=== PATIENT | male | born 1955 | race Caucasian/White ===

== ENCOUNTER → 2018-10-06 08:32 | Outpatient (CLI) | payer MEDICARE, SELFPAY ==
[2018-10-06 10:05] LABS: Add Manual Diff / Slide Review NO; Basophils Absolute Auto 0 /uL (0-100); Basophils Percent Auto 0.6 % (0-2); Eosinophils Absolute Auto 200 /uL (0-450); Eosinophils Percent Auto 3.8 % (2-4); Hematocrit 46.8 % (41-53); Lymphocytes Absolute Auto 2700 /uL (1100-4500); Lymphocytes Percent Auto 52.1 % (25-40); Mean Corpuscular HGB Conc 34.1 % (30-36); Mean Corpuscular Hemoglobin 30.1 PG (26-34); Mean Corpuscular Volume 88.3 fL (80-100); Monocytes Absolute Auto 600 /uL (0-900); Monocytes Percent Auto 11.6 % (3-14); Neutrophils Absolute Auto 1600 /uL (1500-7000); Neutrophils Percent Auto 31.9 % (50-75); Platelet Count 264 X10^3/uL (150-400); Red Blood Cell Count 5.31 X10^6/uL (4.5-5.9); Red Cell Distribution Width 13.7 % (11.6-14.8); White Blood Cell Count 5.2 X10^3/uL (4.5-11.0)
[2018-10-06 10:17] LABS: Alanine Aminotransferase 41 IU/L (21-72); Albumin 4.4 g/dL (3.5-5.0); Albumin Globulin Ratio 1.5 (1.0-2.8); Alkaline Phosphatase 73 U/L (38-126); Aspartate Aminotransferase 38 IU/L (17-59); BUN Creatinine Ratio 28.3 (6-22); Bilirubin Total 0.7 mg/dL (0.2-1.3); Blood Urea Nitrogen 17 mg/dL (9-20); Calcium 9.6 mg/dL (8.4-10.2); Carbon Dioxide 29 mmol/L (22-32); Chloride 104 mmol/L (98-107); Cholesterol 217 mg/dL (140-199); Estimated Glomerular Filt Rate > 60.0 mL/min (>60); Glucose 117 mg/dL (80-110); HDL Cholesterol 66 mg/dL (40-60); HEMOLYSIS < 15 (0-50); LDL Cholesterol Calculated 136 mg/dL (<100); Potassium 4.1 mmol/L (3.4-5.1); Sodium 140 mmol/L (137-145); Total Protein 7.4 g/dL (6.3-8.2); Triglycerides 74 mg/dL (35-150)
[2018-10-06 10:52] LABS: Prostate Specific Antigen Scrn 0.468 ng/mL (0.1-4.0)
== END ==
PROVIDERS: PCP Family Medicine; Visit Provider Family Medicine
DX: E78.5 Hyperlipidemia, unspecified (principal); Z12.5 Encounter for screening for malignant neoplasm of prostate
CPT/HCPCS: 36415; 80053; 80061; 84443; 85025; G0103

== ENCOUNTER → 2019-02-04 09:38 | Outpatient (CLI) | payer MEDICARE, SELFPAY ==
--- NOTE | 2019-02-04 09:42 | DI.RAD.S_ITS ---
PROCEDURE: XR HIP W PEL IF DONE RT 2V INDICATIONS: fall TECHNIQUE: 2 views of the hip were acquired. COMPARISON: None. FINDINGS: Bones: No fractures or dislocations. No suspicious bony lesions. The visualized pelvic ring appears intact. Scattered degenerative subchondral sclerosis and spurring. Mild to joint space narrowing Soft tissues: No suspicious soft tissue calcifications or masses. IMPRESSION: No fracture. If the patient's pain or other symptoms persist, consider further evaluation with MRI Mild right hip joint degeneration Dictated by: Umberto Joseph M.D. on 02/04/2019 at 12:54 Approved by: Umberto Joseph M.D. on 02/04/2019 at 12:55
== END ==
PROVIDERS: PCP Family Medicine; Visit Provider Family Medicine
DX: M25.551 Pain in right hip (principal); M16.11 Unilateral primary osteoarthritis, right hip
CPT/HCPCS: 73502

== ENCOUNTER 2019-05-02 10:15 | Emergency (ER) | payer MEDICARE, SELFPAY ==
--- NOTE | 2019-05-02 10:18 | DI.RAD.S_ITS ---
PROCEDURE: XR CHEST 1V INDICATIONS: chest pain TECHNIQUE: One view of the chest was acquired. COMPARISON: None. FINDINGS: Surgical changes and devices: None. Lungs and pleura: Lungs are clear. No pleural effusions or pneumothorax. Mediastinum: Mediastinal contours appear normal. Heart size is normal. There appears to be mild aortic atherosclerosis. Bones and chest wall: No suspicious bony lesions. Mild deformity of the left clavicle may be related to previous injury. There may also be chronic the 1st and 2nd rib fractures. Overlying soft tissues appear unremarkable. IMPRESSION: No acute cardiopulmonary process is evident. Dictated by: Curtis Landeros M.D. on 05/02/2019 at 9:50 Approved by: Curtis Landeros M.D. on 05/02/2019 at 9:51
[2019-05-02 10:22] VITALS: BP 180/114; PULSE 82; RESP 16; TEMP 36.6; O2SAT 100; BMI 30.2
[2019-05-02 10:32] LABS: Add Manual Diff / Slide Review NO; Basophils Absolute Auto 0 /uL (0-100); Basophils Percent Auto 0.8 % (0-2); Eosinophils Absolute Auto 100 /uL (0-450); Eosinophils Percent Auto 2.7 % (2-4); Hematocrit 46.2 % (41-53); Lymphocytes Absolute Auto 2200 /uL (1100-4500); Mean Corpuscular HGB Conc 34.7 % (30-36); Mean Corpuscular Hemoglobin 30.8 PG (26-34); Mean Corpuscular Volume 88.7 fL (80-100); Monocytes Absolute Auto 700 /uL (0-900); Monocytes Percent Auto 12.4 % (3-14); Neutrophils Absolute Auto 2300 /uL (1500-7000); Neutrophils Percent Auto 43.1 % (50-75); Platelet Count 269 X10^3/uL (150-400); Red Blood Cell Count 5.21 X10^6/uL (4.5-5.9); Red Cell Distribution Width 13.6 % (11.6-14.8); White Blood Cell Count 5.4 X10^3/uL (4.5-11.0)
[2019-05-02 10:33] VITALS: BP 150/104; PULSE 73; RESP 18; O2SAT 98
[2019-05-02] MEDS: ASPIRIN 81 MG CHEW TAB 324 MG PO (10:38)
[2019-05-02] MEDS: SODIUM CHLORIDE 0.9% 1,000 ML 150 ML IV (10:38)
[2019-05-02 10:42] LABS: D Dimer < 200 ng/mL (<230)
[2019-05-02 10:47] LABS: Alanine Aminotransferase 25 IU/L (<50); Albumin 4.6 g/dL (3.5-5.0); Albumin Globulin Ratio 1.6 (1.0-2.8); Alkaline Phosphatase 75 U/L (38-126); Aspartate Aminotransferase 27 IU/L (17-59); BUN Creatinine Ratio 28.3 (6-22); Bilirubin Total 0.5 mg/dL (0.2-1.3); Blood Urea Nitrogen 17 mg/dL (9-20); Calcium 9.7 mg/dL (8.4-10.2); Carbon Dioxide 31 mmol/L (22-32); Chloride 100 mmol/L (98-107); Creatine Kinase 123 U/L (55-170); Estimated Glomerular Filt Rate > 60.0 mL/min (>60); Globulin 2.8 g/dL (1.7-4.1); Glucose 111 mg/dL (80-110); HEMOLYSIS < 15 (0-50); Lipase 38 U/L (23-300); Potassium 4.3 mmol/L (3.4-5.1); Sodium 139 mmol/L (137-145); Total Protein 7.4 g/dL (6.3-8.2)
--- NOTE | 2019-05-02 10:48 | ED.CHESTPAIN ---
HPI - Chest Pain General Chief Complaint: Chest Pain Stated Complaint: CHEST PAIN - SENT FROM [facility] Time Seen by Provider: 05/02/19 10:18 Source: patient Mode of arrival: Ambulatory Limitations: no limitations History of Present Illness HPI narrative: 63-year-old male nonsmoker with noncontributory medical history presents with vague left-sided neck and back pain which seems to wrap around the left chest wall for upwards of 6 weeks. He denies any injury or obvious overuse. He denies any dizziness, weakness or lightheadedness. He denies any fever chills nor cough or shortness of breath. He denies cardiac equivalent such as dizziness, diaphoresis, nausea, vomiting. He has had no long distance travel, history of clot or any kind of cancer. He denies any swelling or pain in his lower extremities. He was seen and evaluated in the walk-in clinic and sent here for evaluation Related Data Home Medications Medication Instructions Recorded Confirmed ASPIRIN (Aspirin EC) 81 mg PO Q DAY #0 11/24/10 05/02/19 naproxen sodium [Aleve] 220 mg PO PRN #0 02/13/11 05/02/19 [VITAMIN E ] 400 iu PO QDAY #0 02/15/11 05/02/19 Previous Rx's Medication Instructions Recorded clobetasol [Temovate] 0.05 % TOPICAL BID #60 gm 06/10/18 amlodipine 5 mg PO DAILY #14 tab 05/02/19 Allergies Allergy/AdvReac Type Severity Reaction Status Date / Time No Known Drug Allergies Allergy Verified 05/02/19 09:23 Review of Systems Constitutional Constitutional: Denies chills, Denies fatigue, Denies fever(s), Denies frequent falls, Denies lethargy and Denies weakness Eyes Eyes: Denies change in vision, Denies eye discharge, Denies irritation and Denies loss of vision ENT Ears, Nose, Mouth, and Throat: Denies change in voice, Denies dizziness, Denies neck pain, Denies sore throat and Denies throat swelling Cardiovascular Cardiovascular: Reports chest pain, Denies irregular heart rhythm, Denies lightheadedness, Denies palpitations, Denies dyspnea, Denies dyspnea on exertion and Denies orthopnea Respiratory Respiratory: Denies cough, Denies dyspnea, Denies dyspnea on exertion and Denies wheezing Gastrointestinal Gastrointestinal: Denies abdominal pain, Denies change in bowel habits, Denies diarrhea, Denies nausea and Denies vomiting Genitourinary Genitourinary: Denies hematuria, Denies flank pain, Denies urinary incontinence and Denies urinary urgency Musculoskeletal Musculoskeletal: Denies back pain, Denies muscle weakness, Denies neck pain, Denies numbness and Denies tingling Integumentary/Breasts Skin/Breast: Denies pruritus, Denies erythema, Denies rash and Denies wounds Neurologic Neurologic: Denies behavioral changes, Denies confusion, Denies dizziness, Denies frequent falls, Denies loss of vision, Denies numbness, Denies tingling and Denies weakness Psychiatric Psychiatric: Denies anxiety, Denies behavioral changes, Denies confusion, Denies depression, Denies homicidal ideation and Denies suicidal ideation Endocrine Endocrine: Denies fatigue, Denies flushing and Denies palpitations Hematologic/Lymphatic Hematologic/Lymphatic: Denies easy bruising Allergic/Immunologic Allergic/Immunologic: Denies urticaria, Denies throat swelling and Denies wheezing Patient History Medical History Bilateral trigger thumb (Resolved) Hyperlipidemia (Chronic) Peyronie's disease (Chronic 2010) Surgical History History of carpal tunnel repair (Resolved 2005) History of cataract removal with insertion of prosthetic lens (Resolved 04/2013) History of foot surgery (Resolved 07/14/12) History of splenectomy (Resolved 1962) History of thumb surgery (Resolved 10/23/07) Status post functional endoscopic sinus surgery (FESS) (Resolved) Status post medial meniscectomy of left knee (Resolved 02/15/11) Status post medial meniscectomy of right knee (Resolved) Family History Father Heart disease Mother Breast cancer in situ Bladder cancer Other Cancer Diabetes mellitus Low back pain Rheumatoid arthritis Stroke Social History Smoking Status: Never smoker Smoking Status: Never smoker alcohol intake frequency: 3 or more drinks per day Alcohol type: beer Substance Use Type: does not use Exam Narrative Exam Narrative: GENERAL: [63] year old patient appears stated age. Well-nourished, well-developed patient, in mild distress. HEAD: Atraumatic. Normocephalic. EYES: Pupils equal round and reactive. Extraocular motions intact. No scleral icterus. No injection or drainage. ENT: Nose without bleeding, purulent drainage. Throat without erythema, tonsillar hypertrophy or exudate. Airway patent. NECK: Trachea midline. Non tender CARDIOVASCULAR: Regular rate and rhythm without murmurs, gallops, or rubs. RESPIRATORY: Clear to auscultation. Breath sounds equal bilaterally. No wheezes, rales, or rhonchi. GASTROINTESTINAL: Abdomen soft, non-tender, nondistended. EXTREMITIES: No edema or joint tenderness. BACK: Nontender without deformity or crepitance. No flank tenderness. NEURO: AOx3. SKIN: No rash or erythema of visible areas Initial Vital Signs Initial Vital Signs: Vital Signs Temperature 97.8 F 05/02/19 10:22 Pulse Rate 82 05/02/19 10:22 Respiratory Rate 16 05/02/19 10:22 Blood Pressure 180/114 H 05/02/19 10:22 Pulse Oximetry 100 05/02/19 10:22 Course Orders Ordered: ED Orders 05/02/19 10:18 XR chest 1V Stat 05/02/19 10:24 EKG-12 Lead Stat 05/02/19 10:29 B Type Natriuretic Peptide Stat Complete Blood Count AUTO DIFF Stat Comprehensive Metabolic Panel Stat D Dimer Stat Lipase Stat Troponin & CK Cardiac Panel Stat Discontinued Medications Aspirin (Aspirin Chew) 324 mg PO NOW ONE Stop: 05/02/19 10:19 Last Admin: 05/02/19 10:38 Dose: 324 mg Documented by: HERRERA Sodium Chloride (Normal Saline 0.9%) 1,000 mls @ 150 mls/hr IV CONT CRISTAL Last Infusion: 05/02/19 12:54 Dose: 0 mls/hr Documented by: Admin: 05/02/19 10:38 Dose: 150 mls/hr Documented by: HERRERA Vital Signs Vital signs: Vital Signs - 8 hr 05/02/19 11:30 05/02/19 12:45 05/02/19 12:53 Pulse Rate 66 67 71 Respiratory Rate 16 15 16 Blood Pressure 174/94 H Blood Pressure [Left Arm] 160/99 H 176/94 H Pulse Oximetry 98 99 98 MDM - Chest Pain Lab Data Result diagrams: 05/02/19 10:29 05/02/19 10:29 Labs: Lab Results 05/02/19 05/02/19 05/02/19 Range/Units 10:29 10:29 10:29 WBC 5.4 (4.5-11.0) X10^3/uL RBC 5.21 (4.5-5.9) X10^6/uL Hgb 16.0 (13.5-17.5) g/dL Hct 46.2 (41-53) % MCV 88.7 (80-100) fL MCH 30.8 (26-34) PG MCHC 34.7 (30-36) % RDW 13.6 (11.6-14.8) % Plt Count 269 (150-400) X10^3/uL Neut % (Auto) 43.1 L (50-75) % Lymph % (Auto) 41.0 H (25-40) % [place] % (Auto) 12.4 (3-14) % Eos % (Auto) 2.7 (2-4) % Baso % (Auto) 0.8 (0-2) % Neut # (Auto) 2300 (2912-7730) /uL Lymph # (Auto) 2200 (6449-4569) /uL [place] # (Auto) 700 (0-900) /uL Eos # (Auto) 100 (0-450) /uL Baso # (Auto) 0 (0-100) /uL D-Dimer < 200 (<230) ng/mL Sodium 139 (137-145) mmol/L Potassium 4.3 (3.4-5.1) mmol/L Chloride 100 (98-107) mmol/L Carbon Dioxide 31 (22-32) mmol/L BUN 17 (9-20) mg/dL Creatinine 0.60 L (0.66-1.25) mg/dL Estimated GFR > 60.0 (>60) mL/min BUN/Creatinine Ratio 28.3 H (6-22) Glucose 111 H (80-110) mg/dL Calcium 9.7 (8.4-10.2) mg/dL Total Bilirubin 0.5 (0.2-1.3) mg/dL AST 27 (17-59) IU/L ALT 25 (<50) IU/L Alkaline Phosphatase 75 (38-126) U/L Total Creatine Kinase 123 (55-170) U/L CK-MB (CK-2) 2.37 (<2.37) ng/mL CK-MB (CK-2) Rel Index 1.9 (1.5-5.0) % Troponin I < 0.012 (0.01-0.034) ng/mL B-Natriuretic Peptide < 100 (<100) Total Protein 7.4 (6.3-8.2) g/dL Albumin 4.6 (3.5-5.0) g/dL Globulin 2.8 (1.7-4.1) g/dL Albumin/Globulin Ratio 1.6 (1.0-2.8) Lipase 38 (23-300) U/L ECG Data Attestation: I personally reviewed and interpreted this ECG as follows: Prior ECG tracings: not available for review Interpretation: EKG is normal sinus rhythm rate [ 71] and free of any signs of ischemia or ectopy. No ST segmental elevation or depression. No T wave inversions MDM Narrative Medical decision making narrative: Multiple etiologies for patient's symptoms considered including: [Musculoskeletal inflammation or spasm versus pulmonary embolism versus cardiac ischemia versus other] Patient's symptoms improved or duration of stay with above-stated therapies. Findings and discharge diagnosis discussed with patient/family followed by verbalization of understanding Return precautions discussed with patient/family whom verbalize understanding. Discharge Plan Departure Patient Disposition: Home Clinical Impression: Acute left-sided thoracic back pain, Atypical chest pain Hypertension Qualifiers: Hypertension type: essential hypertension Qualified Code(s): I10 - Essential (primary) hypertension Discharge Date/Time: 05/02/19 12:55 Instructions: Hypertension (Alternative Therapy), DI for Atypical Chest Pain Activity Restrictions/Additional Instructions: *You have been diagnosed with [thoracic back pain and atypical chest pain ] *What to do: *Take medications as directed *Follow up with your primary care provider in 2-3 days, call for an appointment. Let them know you were seen in the Emergency Department and that we ask that you be seen in follow up *Return to ER if you should have any new, worsening or concerning symptoms Prescriptions: New amlodipine 5 mg tablet 5 mg PO DAILY Qty: 14 RF: 0 No Action ASPIRIN (Aspirin EC) 81 mg PO Q DAY Qty: 0 RF: 0 naproxen sodium [Aleve] 220 MG tablet 220 mg PO PRN Qty: 0 RF: 0 [VITAMIN E ] 400 iu PO QDAY Qty: 0 RF: 0 clobetasol [Temovate] 0.05 % cream 0.05 % Topical BID Qty: 60 RF: 0 Referrals: Devin Peterson MD [Primary Care Provider] -
[2019-05-02 10:58] LABS: Troponin I < 0.012 ng/mL (0.01-0.034)
[2019-05-02 11:01] LABS: B Type Natriuretic Peptide < 100 (<100)
[2019-05-02 11:02] LABS: CKMB % Relative Index 1.9 % (1.5-5.0); Creatine Kinase MB 2.37 ng/mL (<2.37)
[2019-05-02 11:30] VITALS: BP 160/99; PULSE 66; RESP 16; O2SAT 98
[2019-05-02 12:45] VITALS: BP 176/94; PULSE 67; RESP 15; O2SAT 99
[2019-05-02 12:53] VITALS: BP 174/94; PULSE 71; RESP 16; O2SAT 98
== END 2019-05-02 12:55 | disposition home or self-care (01) ==
PROVIDERS: Emergency Provider Emergency Medicine; PCP Family Medicine
DX: M54.6 Pain in thoracic spine (principal); R07.89 Other chest pain; I10 Essential (primary) hypertension; Z79.82 Long term (current) use of aspirin
CPT/HCPCS: 71045; 80053; 82550; 82553; 83690; 83880; 84484; 85025; 85379; 93005; 96360; 96361; 99284; 99285

== ENCOUNTER → 2019-05-11 10:37 | Outpatient (CLI) | payer MEDICARE, SELFPAY ==
--- NOTE | 2019-05-11 10:38 | DI.RAD.S_ITS ---
PROCEDURE: XR THORACIC SPINE 3V INDICATIONS: chest pain TECHNIQUE: 3 views of the thoracic spine were acquired. COMPARISON: None. FINDINGS: Bones: No fractures or dislocations. No suspicious bony lesions. 12 pairs of ribs are noted, and appear intact where visualized. Soft tissues: No paravertebral stripe thickening. IMPRESSION: Mild to moderate degenerative disc disease along the thoracic spine without compression fracture or subluxation. Dictated by: Nelson Gomez M.D. on 05/11/2019 at 11:32 Approved by: Nelson Gomez M.D. on 05/11/2019 at 11:33
--- NOTE | 2019-05-11 10:38 | DI.RAD.S_ITS ---
PROCEDURE: XR CERVICAL SPINE 2V OR 3V INDICATIONS: chest pain TECHNIQUE: 3 view(s) of the cervical spine were acquired. COMPARISON: None. FINDINGS: Bones: No fractures or dislocations to the T1 level. The lateral masses of C1 appear intact on the odontoid view. No suspicious bony lesions. Soft tissues: No prevertebral soft tissue swelling. IMPRESSION: Mild degenerative disc disease present from C3 through C7, without subluxation. Dictated by: Nelson Gomez M.D. on 05/11/2019 at 11:33 Approved by: Nelson Gomez M.D. on 05/11/2019 at 11:33
== END ==
PROVIDERS: PCP Family Medicine; Visit Provider Family Medicine
DX: R07.9 Chest pain, unspecified (principal); M51.34 Other intervertebral disc degeneration, thoracic region; M50.31 Other cervical disc degeneration, high cervical region
CPT/HCPCS: 72040; 72072

== ENCOUNTER → 2019-05-25 08:22 | Outpatient (CLI) | payer MEDICARE, SELFPAY ==
--- NOTE | 2019-05-25 09:20 | PM.TREADMILL ---
Cardiac Stress Test Report Referral & Results Date Patient Seen: 05/25/19 Requesting provider: Devin Peterson Indication: Chest pain Rest ECG: Unremarkable Procedure Note: Today following both written and verbal informed consent, the patient was exercised according to a standard Konrad protocol. The patient exercised for a total of 10 minutes 3 seconds achieving a maximum heart rate of 172. Patient's maximum systolic blood pressure was 220. This was an estimated 12.8 MET's. There are no ST-T segment changes identified Normal heart rate and blood pressure response Functional aerobic impairment rated approximately-25% on the active scale or 125% of normal Occasional PVC Impression: No ECG evidence of ischemia identified Excellent exercise capacity Rare dysrhythmias above Please note: Actual ECG tracings can be found in the PACS system.
== END ==
PROVIDERS: PCP Family Medicine; Referring Provider Family Medicine; Visit Provider Family Medicine
DX: R07.9 Chest pain, unspecified (principal); I49.3 Ventricular premature depolarization
CPT/HCPCS: 93016; 93017; 93018

== ENCOUNTER → 2020-02-01 08:36 | Outpatient (CLI) | payer MEDICARE, SELFPAY ==
[2020-02-02 01:28] LABS: COVID19 Sendout Not Detected (Not Detect)
== END ==
PROVIDERS: PCP Family Medicine; Visit Provider Physician Assistant
DX: Z11.59 Encounter for screening for other viral diseases (principal)
CPT/HCPCS: 87635

== ENCOUNTER → 2020-02-23 08:26 | Outpatient (CLI) | payer MEDICARE, SELFPAY ==
[2020-02-23 09:38] LABS: Add Manual Diff / Slide Review NO; Basophils Absolute Auto 0 /uL (0-100); Basophils Percent Auto 0.8 % (0-2); Eosinophils Absolute Auto 200 /uL (0-450); Eosinophils Percent Auto 3.8 % (2-4); Hematocrit 44.3 % (41-53); Hemoglobin 14.9 g/dL (13.5-17.5); Lymphocytes Absolute Auto 2500 /uL (1100-4500); Lymphocytes Percent Auto 50.7 % (25-40); Mean Corpuscular HGB Conc 33.7 % (30-36); Mean Corpuscular Hemoglobin 29.7 PG (26-34); Mean Corpuscular Volume 88.2 fL (80-100); Monocytes Absolute Auto 500 /uL (0-900); Neutrophils Absolute Auto 1700 /uL (1500-7000); Neutrophils Percent Auto 33.7 % (50-75); Platelet Count 301 X10^3/uL (150-400); Red Blood Cell Count 5.02 X10^6/uL (4.5-5.9); Red Cell Distribution Width 13.4 % (11.6-14.8)
[2020-02-23 09:54] LABS: Alanine Aminotransferase 22 IU/L (<50); Albumin 4.3 g/dL (3.5-5.0); Albumin Globulin Ratio 1.6 (1.0-2.8); Alkaline Phosphatase 67 U/L (38-126); Aspartate Aminotransferase 23 IU/L (17-59); BUN Creatinine Ratio 27.6 (6-22); Bilirubin Total 0.5 mg/dL (0.2-1.3); Blood Urea Nitrogen 16 mg/dL (9-20); Calcium 9.5 mg/dL (8.4-10.2); Carbon Dioxide 31 mmol/L (22-32); Chloride 102 mmol/L (98-107); Cholesterol 201 mg/dL (140-199); Estimated Glomerular Filt Rate > 60.0 mL/min (>60); Globulin 2.7 g/dL (1.7-4.1); Glucose 107 mg/dL (80-110); HDL Cholesterol 75 mg/dL (40-60); HEMOLYSIS < 15 (0-50); LDL Cholesterol Calculated 112 mg/dL (<100); Potassium 4.7 mmol/L (3.4-5.1); Sodium 136 mmol/L (137-145); Triglycerides 69 mg/dL (35-150)
[2020-02-23 10:25] LABS: Prostate Specific Antigen Scrn 0.351 ng/mL (0.1-4.0); TSH w/ Reflex to FT4 1.69 uIU/mL (0.47-4.68)
== END ==
PROVIDERS: PCP Family Medicine; Referring Provider Family Medicine; Visit Provider Family Medicine
DX: E78.5 Hyperlipidemia, unspecified (principal); I10 Essential (primary) hypertension; R73.03 Prediabetes; Z12.5 Encounter for screening for malignant neoplasm of prostate
CPT/HCPCS: 36415; 80053; 80061; 84443; 85025; G0103

== ENCOUNTER → 2020-05-10 12:50 | Outpatient (CLI) | payer MEDICARE, SELFPAY ==
[2020-05-10 13:56] LABS: Alanine Aminotransferase 25 IU/L (<50); Aspartate Aminotransferase 26 IU/L (17-59)
== END ==
PROVIDERS: PCP Family Medicine; Referring Provider Family Medicine; Visit Provider Family Medicine
DX: Z79.899 Other long term (current) drug therapy (principal)
CPT/HCPCS: 36415; 84450; 84460

== ENCOUNTER → 2020-05-27 08:30 | Outpatient (CLI) | payer MEDICARE, SELFPAY ==
[2020-05-27] MEDS: COVID-19 VACC #1, MRNA(MOD) 100 MCG/0.5 ML VIAL IM (08:35)
== END ==
PROVIDERS: PCP Family Medicine; Visit Provider Internal Medicine
DX: Z23 Encounter for immunization (principal)
CPT/HCPCS: 0011A; 91301

== ENCOUNTER → 2020-06-23 09:53 | Outpatient (CLI) | payer MEDICARE, SELFPAY ==
[2020-06-23] MEDS: COVID-19 VACC #2, MRNA(MOD) 100 MCG/0.5 ML VIAL IM (10:01)
== END ==
PROVIDERS: PCP Family Medicine; Visit Provider Internal Medicine
DX: Z23 Encounter for immunization (principal)
CPT/HCPCS: 0012A; 91301

== ENCOUNTER → 2020-07-26 07:18 | Outpatient (CLI) | payer MEDICARE, SELFPAY ==
--- NOTE | 2020-07-26 07:20 | DI.RAD.S_ITS ---
PROCEDURE: XR FINGER RT MIN 2V INDICATIONS: lateral knee pain thumb mcp joint pain TECHNIQUE: AP hand, 2 views of the 1st finger(s) acquired. COMPARISON: None. FINDINGS: Bones: No fractures or dislocations. No suspicious bony lesions. Soft tissues: No suspicious soft tissue calcifications. 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 No recent trauma found. Dictated by: Nelson Gomez M.D. on 07/26/2020 at 10:03 Approved by: Nelson Gomez M.D. on 07/26/2020 at 10:04
--- NOTE | 2020-07-26 07:20 | DI.RAD.S_ITS ---
PROCEDURE: XR KNEE RT 3V INDICATIONS: lateral knee pain TECHNIQUE: 3 views of the knee were acquired. COMPARISON: [facility], , KNEE 3V LEFT, 11/29/2010, 9:22. FINDINGS: Bones: No fractures or dislocations. No suspicious bony lesions. Soft tissues: No joint effusion. No suspicious soft tissue calcifications. IMPRESSION: No trauma, source of pain not seen. Dictated by: Nelson Gomez M.D. on 07/26/2020 at 10:04 Approved by: Nelson Gomez M.D. on 07/26/2020 at 10:04
== END ==
PROVIDERS: PCP Family Medicine; Referring Provider Family Medicine; Visit Provider Family Medicine
DX: M25.569 Pain in unspecified knee (principal); M18.11 Unilateral primary osteoarthritis of first carpometacarpal joint, right hand
CPT/HCPCS: 73140; 73562

== ENCOUNTER → 2021-03-06 07:00 | Outpatient (CLI) | payer MEDICARE, SELFPAY ==
[2021-03-06 07:49] LABS: Add Manual Diff / Slide Review NO; Basophils Absolute Auto 0 /uL (0-100); Basophils Percent Auto 0.7 % (0-2); Eosinophils Absolute Auto 200 /uL (0-450); Eosinophils Percent Auto 3.8 % (2-4); Hemoglobin 14.9 g/dL (13.5-17.5); Lymphocytes Absolute Auto 3000 /uL (1100-4500); Lymphocytes Percent Auto 52.7 % (25-40); Mean Corpuscular HGB Conc 33.8 % (30-36); Mean Corpuscular Hemoglobin 28.9 PG (26-34); Mean Corpuscular Volume 85.6 fL (80-100); Monocytes Absolute Auto 700 /uL (0-900); Monocytes Percent Auto 12.1 % (3-14); Neutrophils Absolute Auto 1700 /uL (1500-7000); Neutrophils Percent Auto 30.7 % (50-75); Platelet Count 274 X10^3/uL (150-400); Red Blood Cell Count 5.14 X10^6/uL (4.5-5.9); Red Cell Distribution Width 13.8 % (11.6-14.8); White Blood Cell Count 5.7 X10^3/uL (4.5-11.0)
[2021-03-06 08:06] LABS: Alanine Aminotransferase 24 IU/L (<50); Albumin 4.5 g/dL (3.5-5.0); Albumin Globulin Ratio 1.7 (1.0-2.8); Alkaline Phosphatase 72 U/L (38-126); Aspartate Aminotransferase 28 IU/L (17-59); BUN Creatinine Ratio 23.9 (6-22); Bilirubin Total 0.4 mg/dL (0.2-1.3); Blood Urea Nitrogen 17 mg/dL (9-20); Calcium 9.5 mg/dL (8.4-10.2); Carbon Dioxide 29 mmol/L (22-32); Chloride 100 mmol/L (98-107); Cholesterol 245 mg/dL (140-199); Estimated Glomerular Filt Rate > 60.0 mL/min (>60); Globulin 2.7 g/dL (1.7-4.1); Glucose 111 mg/dL (80-110); HDL Cholesterol 77 mg/dL (40-60); HEMOLYSIS < 15 (0-50); LDL Cholesterol Calculated 141 mg/dL (<100); Potassium 4.4 mmol/L (3.4-5.1); Sodium 136 mmol/L (137-145); Total Protein 7.2 g/dL (6.3-8.2); Triglycerides 133 mg/dL (35-150)
[2021-03-06 08:30] LABS: Thyroid Stimulating Hormone 2.23 uIU/mL (0.47-4.68)
[2021-03-06 08:31] LABS: Prostate Specific Antigen 0.679 ng/mL (0.10-4.00)
== END ==
PROVIDERS: PCP Family Medicine; Referring Provider Physician Assistant; Visit Provider Physician Assistant
DX: I10 Essential (primary) hypertension (principal); R73.03 Prediabetes; E78.5 Hyperlipidemia, unspecified
CPT/HCPCS: 36415; 80053; 80061; 84153; 84443; 85025

== ENCOUNTER → 2021-03-07 11:58 | Outpatient (CLI) | payer MEDICARE, SELFPAY ==
--- NOTE | 2021-03-07 11:59 | DI.RAD.S_ITS ---
PROCEDURE: XR CHEST 2V INDICATIONS: deep pain post L side (mid scapula) worse when lying down TECHNIQUE: 2 views of the chest were acquired. COMPARISON: [facility], CR, XR CHEST 1V, 05/02/2019, 10:23. FINDINGS: Surgical changes and devices: None. Lungs and pleura: Lungs are clear. No pleural effusions or pneumothorax. Mediastinum: Mediastinal contours are normal. Heart size is normal. Bones and chest wall: No suspicious bony abnormalities. Soft tissues appear unremarkable. IMPRESSION: No source for chest pain identified. Dictated by: Delvis De Leon A Interpreted: China uDbois MD on 03/07/2021 at 13:50 Transcribed by: ALEJANDRINA on 03/07/2021 at 13:51 Approved by: China Dubois MD, PhD on 03/07/2021 at 15:04
== END ==
PROVIDERS: PCP Family Medicine; Referring Provider Physician Assistant; Visit Provider Physician Assistant
DX: M54.9 Dorsalgia, unspecified (principal); R07.9 Chest pain, unspecified
CPT/HCPCS: 71046

== ENCOUNTER → 2021-08-17 09:26 | Outpatient (CLI) | payer MEDICARE, SELFPAY ==
[2021-08-17 10:42] LABS: COVID19 -Nasal RAPID Negative (Negative)
== END ==
PROVIDERS: PCP Family Medicine; Visit Provider Physician Assistant
DX: Z20.822 Contact with and (suspected) exposure to COVID-19 (principal)
CPT/HCPCS: 87635

== ENCOUNTER → 2022-05-23 06:55 | Outpatient (CLI) | payer MEDICARE, SELFPAY ==
[2022-05-23 10:43] LABS: Add Manual Diff / Slide Review NO; Basophils Absolute Auto 100 /uL (0-100); Basophils Percent Auto 1.1 % (0-2); Eosinophils Absolute Auto 300 /uL (0-450); Eosinophils Percent Auto 5.3 % (2-4); Hematocrit 44.3 % (41-53); Lymphocytes Absolute Auto 2800 /uL (1100-4500); Lymphocytes Percent Auto 55.3 % (25-40); Mean Corpuscular HGB Conc 33.9 % (30-36); Mean Corpuscular Hemoglobin 30.3 PG (26-34); Mean Corpuscular Volume 89.3 fL (80-100); Monocytes Absolute Auto 600 /uL (0-900); Monocytes Percent Auto 12.7 % (3-14); Neutrophils Absolute Auto 1300 /uL (1500-7000); Neutrophils Percent Auto 25.6 % (50-75); Platelet Count 237 X10^3/uL (150-400); Red Blood Cell Count 4.96 X10^6/uL (4.5-5.9); Red Cell Distribution Width 13.7 % (11.6-14.8); White Blood Cell Count 5.1 X10^3/uL (4.5-11.0)
[2022-05-23 11:09] LABS: Alanine Aminotransferase 36 IU/L (<50); Albumin 4.2 g/dL (3.5-5.0); Albumin Globulin Ratio 1.6 (1.0-2.8); Alkaline Phosphatase 74 U/L (38-126); Aspartate Aminotransferase 32 IU/L (17-59); BUN Creatinine Ratio 22.5 (6-22); Bilirubin Total 0.5 mg/dL (0.2-1.3); Blood Urea Nitrogen 16 mg/dL (9-20); Calcium 9.1 mg/dL (8.4-10.2); Carbon Dioxide 28 mmol/L (22-32); Chloride 99 mmol/L (98-107); Cholesterol 206 mg/dL (140-199); Estimated Glomerular Filt Rate > 60 mL/min (>60); Globulin 2.6 g/dL (1.7-4.1); Glucose 97 mg/dL (80-110); HDL Cholesterol 77 mg/dL (40-60); HEMOLYSIS < 15 (0-50); LDL Cholesterol Calculated 109 mg/dL (<100); Potassium 4.3 mmol/L (3.4-5.1); Sodium 137 mmol/L (137-145); Total Protein 6.8 g/dL (6.3-8.2); Triglycerides 100 mg/dL (35-150)
[2022-05-23 11:37] LABS: Prostate Specific Antigen Scrn 0.435 ng/mL (0.1-4.0)
== END ==
PROVIDERS: PCP Family Medicine; Referring Provider Family Medicine; Visit Provider Family Medicine
DX: E78.5 Hyperlipidemia, unspecified (principal); Z12.5 Encounter for screening for malignant neoplasm of prostate; I10 Essential (primary) hypertension
CPT/HCPCS: 36415; 80053; 80061; 85025; G0103

== ENCOUNTER → 2023-11-07 07:47 | Outpatient (CLI) | payer MEDICARE, SELFPAY ==
[2023-11-07 08:30] LABS: Add Manual Diff / Slide Review NO; Basophils Absolute Auto 0 /uL (0-100); Basophils Percent Auto 0.7 % (0-2); Eosinophils Absolute Auto 200 /uL (0-450); Eosinophils Percent Auto 3.1 % (2-4); Hematocrit 44.7 % (41-53); Hemoglobin 14.9 g/dL (13.5-17.5); Lymphocytes Absolute Auto 3600 /uL (1100-4500); Lymphocytes Percent Auto 60.3 % (25-40); Mean Corpuscular HGB Conc 33.4 % (30-36); Mean Corpuscular Volume 86.7 fL (80-100); Monocytes Absolute Auto 600 /uL (0-900); Monocytes Percent Auto 10.6 % (3-14); Neutrophils Absolute Auto 1500 /uL (1500-7000); Neutrophils Percent Auto 25.3 % (50-75); Platelet Count 261 X10^3/uL (150-400); Red Blood Cell Count 5.15 X10^6/uL (4.5-5.9); Red Cell Distribution Width 15.1 % (11.6-14.8); White Blood Cell Count 5.9 X10^3/uL (4.5-11.0)
[2023-11-07 08:45] LABS: Alanine Aminotransferase 26 IU/L (<50); Albumin 4.2 g/dL (3.5-5.0); Albumin Globulin Ratio 1.6 (1.0-2.8); Alkaline Phosphatase 68 U/L (38-126); Aspartate Aminotransferase 26 IU/L (17-59); BUN Creatinine Ratio 19.7 (6-22); Bilirubin Total 0.7 mg/dL (0.2-1.3); Blood Urea Nitrogen 14 mg/dL (9-20); Calcium 9.6 mg/dL (8.4-10.2); Carbon Dioxide 26 mmol/L (22-32); Chloride 106 mmol/L (98-107); Estimated Glomerular Filt Rate > 60 mL/min (>60); Globulin 2.7 g/dL (1.7-4.1); Glucose 102 mg/dL (80-110); HEMOLYSIS < 15 (0-50); Hemoglobin A1C% w Est Avg Glu 6.1 % (4.0-6.0); Potassium 4.6 mmol/L (3.4-5.1); Sodium 138 mmol/L (137-145); Total Protein 6.9 g/dL (6.3-8.2)
[2023-11-07 09:12] LABS: TSH w/ Reflex to FT4 2.13 uIU/mL (0.47-4.68)
[2023-11-07 09:14] LABS: Prostate Specific Antigen 0.442 ng/mL (0.10-4.00)
== END ==
LOC: LAB 07:47
PROVIDERS: PCP Family Medicine; Referring Provider Physician Assistant; Visit Provider Physician Assistant
DX: I10 Essential (primary) hypertension (principal); R73.03 Prediabetes; N40.1 Benign prostatic hyperplasia with lower urinary tract symptoms; E78.5 Hyperlipidemia, unspecified; N52.9 Male erectile dysfunction, unspecified; N13.8 Other obstructive and reflux uropathy; B35.1 Tinea unguium
CPT/HCPCS: 36415; 80053; 83036; 84153; 84443; 85025

== ENCOUNTER 2024-01-20 11:23 | Day surgery (SDC) | payer MEDICARE, SELFPAY ==
--- NOTE | 2024-01-20 | PATH_ITS ---
[facility] Accession Number: [id number] No. of containers..02 Tissue . 01 Material submitted: . PART A: gastrointestinal site - ANTRUM PART B: esophagus - DISTAL ESOPHAGUS . 01 Diagnosis: A. GASTRIC ANTRUM, BIOPSY: Gastric mucosa with mild chronic inflammation. No Helicobacter pylori organisms identified on immunohistochemical evaluation. No intestinal metaplasia, dysplasia, or malignancy. . B. DISTAL ESOPHAGUS, BIOPSY: Squamous mucosa with reactive epithelial changes suggestive of reflux. Gastric glandular type mucosa with mild chronic inflammation. No fungal organisms or goblet cell metaplaisa identified on AB-PAS stain with control staining appropriately. No dysplasia or malignancy. [facility] 01/23/2024 1157 Local . 01 Electronically signed: . Catherine Cuellar MD, Pathologist NPI- [id number] . 01 Gross description: . Part A: ANTRUM: Received in formalin are 4 fragment(s) of goncalves, soft tissue measuring 0.2 x 0.2 x 0.2 cm to 0.3 x 0.2 x 0.2 cm submitted entirely in 1 cassette(s) Part B: DISTAL ESOPHAGUS: Received in formalin are 4 fragment(s) of goncalves, soft tissue measuring 0.2 x 0.1 x 0.1 cm to 0.3 x 0.3 x 0.2 cm submitted entirely in 1 cassette(s) /SUSANA 01/21/2024 0135 Local . 01 Microscopic: . A. An immunohistochemical stain was performed to evaluate for Helicobacter organisms and is negative. The control stain showed appropriate reactivity. . . * This test was developed and its performance characteristics determined by [facility]. It has not been cleared or approved by the U.S. Food and Drug Administration. The FDA has determined that such clearance or approval is not necessary. This test is used for clinical purposes. It should not be regarded as investigational or for research. . 01 Pathologist provided ICD-10: K29.70, K21.9 . 01 CPT . 985243, 749423, [id number], 761606 Specimen Comment: A courtesy copy of this report has been sent to [phone] Performed at: [address] [id number] MD Bruce Downs MD Phone: [phone]
[2024-01-20 11:46] VITALS: BP 148/90; PULSE 75; RESP 16; TEMP 36.6; O2SAT 95
[2024-01-20] MEDS: LACTATED RINGERS 1,000 ML 150 ML IV (12:02)
--- NOTE | 2024-01-20 12:16 | P.HP_ITS ---
History of Present Illness History of Present Illness Date Patient Seen: 01/20/24 Time Patient Seen: 12:16 Chief complaint: EGD/Colonoscopy Narrative: Darnell is a 68-year-old man with a history of gastroesophageal reflux disease and a and a family history of GI malignancy. See the prior office note from November for details. [facility] Medical History (Updated 12/16/23 @ 09:38 by Devin Peterson MD) Bilateral trigger thumb Peyronie's disease (2010) Hyperlipidemia Surgical History Status post medial meniscectomy of right knee History of foot surgery (07/14/12) Status post medial meniscectomy of left knee (02/15/11) History of thumb surgery (10/23/07) Status post functional endoscopic sinus surgery (FESS) History of cataract removal with insertion of prosthetic lens (04/2013) History of carpal tunnel repair (2005) History of splenectomy (1962) Family History Father Heart disease Mother Breast cancer in situ Bladder cancer Other Cancer Diabetes mellitus Low back pain Rheumatoid arthritis Stroke Social History marital status: Smoking Status: Never smoker alcohol intake: current substance use type: does not use Meds Home Medications and Allergies Home Medications Medication Instructions Recorded Confirmed Type ASPIRIN (Aspirin EC) 81 mg PO Q DAY ##0 11/24/10 12/16/23 History naproxen sodium 220 mg tablet 220 mg PO PRN Pain ##0 02/13/11 01/20/24 History (Aleve) [VITAMIN E ] 400 iu PO QDAY ##0 02/15/11 12/16/23 History zheixozilqa-csr-uduqcbudu-hrb 1 tab PO DAILY 03/07/21 01/20/24 History 149-hyalur 500 mg-500 mg-66.7 mg tablet (Codmvmygfsm-Hasnprjjnat-XAS (with antiox)) niacin 250 mg capsule,extended 250 mg PO DAILY 03/07/21 01/20/24 History release ketoconazole 2 % topical cream See Rx Instructions topical BID 05/07/22 01/20/24 Rx #30 grams sildenafil 50 mg tablet 50 mg PO .ONE HOUR PRIOR #30 tabs 10/15/23 12/16/23 Rx tamsulosin 0.4 mg capsule 0.4 mg PO DAILY #90 caps 12/11/23 12/16/23 Rx terbinafine HCl 250 mg tablet 250 mg PO DAILY 12 weeks #90 tabs 12/16/23 12/16/23 Rx sodium,potassium,mag sulfates 17.5 See Rx Instructions PO .COMPLEX 12/30/23 Rx gram-3.13 gram-1.6 gram oral soln #354 mL (Suprep Bowel Prep Kit) amlodipine 5 mg-benazepril 20 mg 1 cap PO DAILY #90 caps 12/31/23 01/20/24 Rx capsule Allergies Allergy/AdvReac Type Severity Reaction Status Date / Time No Known Drug Allergies Allergy Verified 01/20/24 11:35 Exam Vital Signs (past 8 hours): - 01/20/24 11:46 Temperature 97.8 F Pulse Rate 75 Respiratory Rate 16 Blood Pressure 148/90 H Pulse Oximetry 95 Oxygen Delivery Method Room Air Oxygen Delivery Method Room Air Const General: healthy appearing Resp Effort & Inspection: normal respiratory effort Assessment & Plan Assessment and plan (1) Family history of GI malignancy: Status: Acute (2) GERD (gastroesophageal reflux disease): Qualifiers: Esophagitis presence: esophagitis presence not specified Qualified Code(s): K21.9 - Gastro-esophageal reflux disease without esophagitis Status: Chronic Plan We reviewed the risks and benefits of EGD and colonoscopy and he would like to proceed. Time-Based Coding :: [TOTAL MINUTES] spent with patient and on the chart (including review of chart, obtaining history, exam, reviewing outside data, placing orders, documenting exam and treatment plan, and counseling patient) on [DATE].
--- NOTE | 2024-01-20 12:19 | SUR.OPER ---
EGD SCOPE 047
[2024-01-20 13:02] VITALS: BP 111/65; PULSE 64; RESP 14; TEMP 36.1; O2SAT 95
--- NOTE | 2024-01-20 13:02 | P.OP.EGD&C_ITS ---
Operative Date/Time/Diagnoses Date of procedure: 01/20/24 Time of procedure: 13:02 Pre-op diagnosis: GERD and family history of GI malignancy Post-op diagnosis: same Procedure & Clinicians Study performed: EGD and colonoscopy Same procedure as scheduled: Yes Surgeon: Umair Avelar Procedure Notes Procedure in detail: Surgeon: Umair Avelar MD Anesthesia: Michell Raines CONSTRUCTION ADMINISTRATOR Procedure in detail: A timeout was performed. A bite blocked was placed and monitors were attached to the patient. The patient was positioned in the left lateral decubitus position. Sedation was administered. Once the patient was sedated the endoscope was inserted through the bite block and passed through the esophagus and stomach and into the duodenum. No abnormalities were found. We then withdrew the scope into the stomach. There was some mild antritis and random biopsies were taken from the antrum with cold forceps. The endoscope was retroflexed and a small hiatal hernia was noted. The endoscope was straightned and withdrawn into the esophagus. There was some small patches of salmon-color ed mucosa at the GE junction and biopsies were taken with cold forceps. The rest of the esophagus was normal. EGD findings: Mild antritis, small hiatal hernia and small salmon colored patches of mucosa at the GE junction Next we repositioned the patient for a colonoscopy. A digital rectal exam was performed and was normal. The colonoscope was inserted and advanced to the cecum. The appendiceal orifice was identified and photographed. The scope was slowly withdrawn over greater than 6 minutes. No polyps were identified. There was mild sigmoid colon diverticulosis. The scope was retroflexed in the rectum and no other abnormalities were found. Colonoscopy findings: Mild sigmoid colon diverticulosis Total procedural EBL: 5 mL Scope withdrawal time: 7 minutes Sedation minutes: 32 minutes Post-procedure Recommendations: Colonscopy in 5 years Disposition: PACU
[2024-01-20 13:07] VITALS: BP 103/66; PULSE 66; RESP 16; O2SAT 92
[2024-01-20 13:12] VITALS: BP 110/68; PULSE 66; RESP 14; O2SAT 95
[2024-01-20 13:20] VITALS: BP 135/87; PULSE 55; RESP 14; TEMP 36.7; O2SAT 96
== END 2024-01-20 13:32 | disposition home or self-care (01) ==
PROVIDERS: PCP Family Medicine; Referring Provider Surgery; Visit Provider Surgery
PROC: 0DJ08ZZ Inspection of Upper Intestinal Tract, Via Natural or Artificial Opening Endoscopic (ICD-10-PCS; CPT 43235; principal; 2024-01-20 12:30)
PROC: 0DJD8ZZ Inspection of Lower Intestinal Tract, Via Natural or Artificial Opening Endoscopic (ICD-10-PCS; CPT 45378; 2024-01-20 12:30)
DX: Z12.11 Encounter for screening for malignant neoplasm of colon (principal); Z80.0 Family history of malignant neoplasm of digestive organs; K21.9 Gastro-esophageal reflux disease without esophagitis; K57.30 Diverticulosis of large intestine without perforation or abscess without bleeding; K29.50 Unspecified chronic gastritis without bleeding; K44.9 Diaphragmatic hernia without obstruction or gangrene
CPT/HCPCS: 43239; G0105; J2704

== ENCOUNTER → 2024-04-16 11:30 | Outpatient (CLI) | payer MEDICARE, SELFPAY ==
--- NOTE | 2024-04-16 11:32 | DI.RAD.S_ITS ---
PROCEDURE: XR KNEE LT 3V INDICATIONS: Left knee pain/swelling - suspect OA TECHNIQUE: 3 views of the knee were acquired. COMPARISON: [facility], CR, XR KNEE RT 3V, 07/26/2020, 7:19. FINDINGS: Bones: No fractures or dislocations. No suspicious bony lesions. Tricompartmental joint space narrowing with associated osteophytosis. Soft tissues: No joint effusion. No suspicious soft tissue calcifications. 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 Moderate knee joint effusion. Dictated by: Tacho Mims M.D. on 04/16/2024 at 16:42 Approved by: Kash Contreras M.D. on 04/30/2024 at 13:47
== END ==
PROVIDERS: PCP Family Medicine; Referring Provider Physician Assistant; Visit Provider Physician Assistant
DX: M17.12 Unilateral primary osteoarthritis, left knee (principal); M25.562 Pain in left knee; M25.462 Effusion, left knee
CPT/HCPCS: 73562